=== PATIENT | male | born 1955 | race Caucasian/White ===

== ENCOUNTER → 2021-01-04 | Outpatient (CLI) | payer OTHER | LOC: RAD 15:04 | DX: Z11.1 Encounter for screening for respiratory tuberculosis (principal) | CPT/HCPCS: 71046 ==

== ENCOUNTER 2021-09-27 14:51 | Emergency (ER) | payer MEDICARE, OTHER ==
[~2021-09-27 14:51] MED LIST: ATORVASTATIN CA20 MG PO; CARVEDILOL12.5 MG PO; CYMBALTA60 MG PO; FISH OIL 1,0001 EAC1 PO; FOLIC ACID 1 MG1 MG PO; LISINOPRIL5 MG PO; METOPROLOL TART25 MG PO; QUETIAPINE FUM100 MG PO; VITAMIN B-1100 M1 PO
[2021-09-27 17:43] LABS: HEMOGLOBIN 13.7 gm/dl (14.0-17.5); RED BLOOD COUNT 3.95 M/UL (4.20-5.50); WHITE BLOOD COUNT 11.4 K/UL (4.5-11.0)
[2021-09-27] MEDS ORDERED: VALIUM 5 MG TAB5 MG PO (18:29)
[2021-09-27] MEDS ORDERED: ZOFRAN ODT 4 MG4 MG SL (18:29)
== END 2021-09-27 18:50 | disposition home or self-care (01) ==
LOC: ER1 14:51
PROVIDERS: Emergency Medicine
DX: R11.2 Nausea with vomiting, unspecified (principal); J44.9 Chronic obstructive pulmonary disease, unspecified; I10 Essential (primary) hypertension; E78.00 Pure hypercholesterolemia, unspecified; N28.9 Disorder of kidney and ureter, unspecified
CPT/HCPCS: 80053; 84484; 85025; 96374; 99284; J2405